=== PATIENT | male | born 1960 | race Caucasian/White ===

== ENCOUNTER 2016-05-23 01:19 | Emergency (ER) | payer OTHER ==
[2016-05-23] MEDS ORDERED: OPTIRAY 350 100 ML VIAL HMH IV ONE (01:20)
[2016-05-23] MEDS ORDERED: SODIUM CHLORIDE 0.9% 0 ML ONE (01:41)
[2016-05-23] MEDS ORDERED: SODIUM CHLORIDE 0.9% 1,000 ML ONE (01:46)
[2016-05-23] MEDS ORDERED: KETOROLAC 30 MG/ML VIAL ONE (02:47)
[2016-05-23] MEDS ORDERED: DILAUDID 1 MG/ML AMP ONE (02:47)
[2016-05-23] MEDS ORDERED: ONDANSETRON 4 MG VIAL ONE (02:47)
== END 2016-05-23 03:19 | disposition home or self-care (01) ==
LOC: EEVIPCON 01:19 → ER 01:19
DX: Z02.89 Encounter for other administrative examinations (principal); R04.0 Epistaxis; S06.0X0A Concussion without loss of consciousness, initial encounter; Y04.2XXA Assault by strike against or bumped into by another person, initial encounter; S30.1XXA Contusion of abdominal wall, initial encounter; S00.93XA Contusion of unspecified part of head, initial encounter; S00.83XA Contusion of other part of head, initial encounter; S00.33XA Contusion of nose, initial encounter; S20.212A Contusion of left front wall of thorax, initial encounter; S20.211A Contusion of right front wall of thorax, initial encounter
CPT/HCPCS: 36415; 70450; 70486; 71010; 71260; 72125; 74177; 80053; 85025; 85610; 85730; 96361; 96374; 96375